=== PATIENT | female | born 1990 | race American Indian/Alaskan Native ===

== ENCOUNTER 2025-05-26 14:02 | Emergency (ER) | payer BC ==
[2025-05-26 14:10] VITALS: BP 105/49; PULSE 80; RESP 20; TEMP 98; BMI 27.4
[2025-05-26] MEDS ORDERED: FOLIC ACID INJECTION - 1 MG, THIAMINE HCL 100 MG, MULTIVIT INJECTION ADULT 10 ML in SOD... IVPB ONE (14:32)
[2025-05-26] MEDS ORDERED: METOCLOPRAMIDE HCL INJECTION 10 MG/2 ML VIAL IVPUSH ONE (14:33)
[2025-05-26 15:21] LABS: ABSOLUTE IMMATURE GRANULOCYTES 0.06 x10^3/uL (0.0-0.031); BASOPHILS # 0.04 x10^3/uL (0.01-0.08); EOSINOPHIL % 1.1 % (0.7-5.8); EOSINOPHILS # 0.13 x10^3/uL (0.04-0.36); MCHC 32.7 g/dl (32.2-35.5); MEAN CELL VOLUME 91.1 fl (79.4-94.8); MEAN PLT VOLUME 9.4 fl (9.4-12.3); MONOCYTE # 0.78 x10^3/uL (0.24-0.86); MONOCYTE % 6.6 % (4.7-12.5); RDW 13.4 % (12.1-16.8)
[2025-05-26 15:31] LABS: GLUCOSE,RANDOM 98.0 mg/dL (74-106); TOT PROT 7.5 g/dl (6.4-8.2)
[2025-05-26 15:32] LABS: CO2 25.0 mmol/L (21-32)
[2025-05-26 15:33] LABS: ALK PHOS 53.0 U/L (40-150)
[2025-05-26 15:36] LABS: CREATININE 0.58 mg/dL (0.55-1.3); SGOT/AST 20.0 U/L (5-34); SGPT/ALT 14.0 U/L (0-55)
[2025-05-26] MEDS ORDERED: METOCLOPRAMIDE HCL INJECTION 10 MG/2 ML VIAL ONE (16:10)
[2025-05-26] MEDS ORDERED: ONDANSETRON *ODT* 4 MG TABLET ONE (16:10)
[2025-05-26] MEDS: ONDANSETRON *ODT* 4 MG TABLET SL ONE (16:15)
[2025-05-27] MEDS ORDERED: PYRIDOXINE HCL (B-6) 50 MG TABLET (FP) PO ONE (14:27)
== END 2025-05-26 17:13 | disposition home or self-care (01) ==
LOC: JER 14:02
DX: O21.9 Vomiting of pregnancy, unspecified (principal); Z3A.00 Weeks of gestation of pregnancy not specified
CPT/HCPCS: 36415; 76817-TC; 80053; 83690; 84702; 85025; 99284-25; Q0162